=== PATIENT | female | born 1980 | race African-American/Black ===

== ENCOUNTER 2017-02-05 09:22 | Emergency (ER) | payer OTHER ==
[~2017-02-05] VITALS: Ht 157.5 cm; Wt 61.4 kg
[2017-02-05 09:22] VITALS: BP 134/71
[2017-02-05] MEDS ORDERED: MUCI600T37 PO (09:52)
[2017-02-05] MEDS ORDERED: IBUP1TAB7 PO (09:52)
[2017-02-05] MEDS ORDERED: AUGM875T28 PO (09:52)
[2017-02-05] MEDS ORDERED: CLAR1TAB2 PO (09:52)
[2017-02-05] MEDS ORDERED: AUGMENTIN 875 MG TAB PO ONE (10:00)
== END 2017-02-05 10:06 | disposition home or self-care (01) ==
LOC: M ED 09:22
DX: J01.90 Acute sinusitis, unspecified (principal)

== ENCOUNTER 2017-02-20 17:09 | Emergency (ER) | payer OTHER ==
[~2017-02-20] VITALS: Ht 160 cm; Wt 62.2 kg
[2017-02-20 17:09] VITALS: BP 131/76
[~2017-02-20 17:09] MED LIST: AUGM875T28 PO; CLAR1TAB2 PO; IBUP1TAB7 PO; MUCI600T37 PO
[2017-02-20] MEDS ORDERED: PRED10TA2 PO (17:34)
[2017-02-20] MEDS ORDERED: predniSONE 20 MG TAB PO ONE (17:45)
[2017-02-20] MEDS ORDERED: LORATADINE 10 MG TAB PO ONE (17:45)
== END 2017-02-20 17:57 | disposition home or self-care (01) ==
LOC: M ED 17:09
DX: L20.9 Atopic dermatitis, unspecified (principal)